=== PATIENT | female | born 1970 | race Caucasian/White ===

== ENCOUNTER 2017-11-20 00:04 | Emergency (ER) | payer MEDICARE ==
--- NOTE | 2017-11-20 00:25 | ERNOTE ---
Abdominal HPI - Narrative Date of Service: 11/20/17 - General Chief Complaint: Abdominal Pain Time Seen by Provider: 11/20/17 00:19 Source: patient Exam Limitations: no limitations - Immun/Allergies/Home Medications Immunizatons: IMMUNIZATION HX Immunizations Up to Date Yes History of Influenza Vaccine Yes Hx Pneumococcal Vaccination Yes Allergies/Adverse Reactions: Allergies acetaminophen [From Vicodin] Allergy (Intermediate, Verified 11/20/17 00:13) THROAT SWELLS hydrocodone bitartrate [From Vicodin] Allergy (Intermediate, Verified 11/20/17 00:13) THROAT SWELLS simvastatin Allergy (Verified 11/20/17 00:13) pravastatin Adverse Reaction (Mild, Verified 11/20/17 00:13) HEADACHE, NAUSEA Home Medications: HOME MEDICATIONS ALPRAZolam [Xanax] 1 mg PO TID PRN 11/21/14 [Last Taken 11/21/14] Albuterol Sulfate [Proair Hfa] 2 puff IH Q4H PRN 11/21/14 [Last Taken Unknown] Atenolol [Tenormin] 50 mg PO DAILY 11/21/14 [Last Taken 11/21/14] Diltiazem HCl [Cardizem Cd] 360 mg PO DAILY 11/21/14 [Last Taken 11/22/14] Gabapentin [Neurontin] 600 mg PO TID 11/21/14 [Last Taken 11/21/14] HYDROmorphone HCL [Dilaudid] 2 mg PO QID PRN 11/21/14 [Last Taken Unknown] Ipratropium [place] [Ipratropium Carolina (Atrovent)] 0.25 mg IH Q6H 11/21/14 [ Last Taken Unknown] Montelukast Sodium [Singulair] 10 mg PO DAILY 11/21/14 [Last Taken 11/21/14] Multivitamins [Multivitamin Maura] 1 cap PO DAILY 11/21/14 [Last Taken 11/21/14 ] Potassium Chloride [Klor-Con 10] 10 meq PO DAILY 11/21/14 [Last Taken 11/21/14] Topiramate [Topamax] 25 mg PO DAILY 11/21/14 [Last Taken 11/21/14] Doxycycline Hyclate [Vibratab] 100 mg PO BID #20 tab 09/17/15 [Last Taken Unknown] Amox Tr/Potassium Clavulanate [Augmentin 875-125 Tablet] 875 mg PO Q12H #20 tab 12/05/15 [Last Taken Unknown] ALPRAZolam [Xanax] 1 mg PO TID PRN 11/20/17 [Last Taken Unknown] Albuterol Sulfate [Proair Hfa] 1 puff IH QID 11/20/17 [Last Taken Unknown] Atenolol [Tenormin] 50 mg PO DAILY 11/20/17 [Last Taken Unknown] Dicyclomine HCl [Bentyl] 20 mg PO QID 11/20/17 [Last Taken Unknown] Levothyroxine Sodium [Levoxyl] 112 mcg PO DAILY 11/20/17 [Last Taken Unknown] Methenamine Hippurate 1 gm PO BID 11/20/17 [Last Taken Unknown] Omeprazole 20 mg PO DAILY 11/20/17 [Last Taken Unknown] Prazosin HCl 2 mg PO DAILY 11/20/17 [Last Taken Unknown] SUMAtriptan SUCCINATE [Imitrex] 100 mg PO PRN 11/20/17 [Last Taken Unknown] Venlafaxine HCl [Effexor Xr] 150 mg PO DAILY 11/20/17 [Last Taken Unknown] lamoTRIgine [Lamictal Odt] 50 mg PO HS 11/20/17 [Last Taken Unknown] rOPINIRole HCL [Requip] 0.5 mg PO BID 11/20/17 [Last Taken Unknown] - History of Present Illness Narrative: 47 year old that has been having left flank/abdominal pain that is sharp since Tuesday. Movement seems to increase the pain. The pain has worsened, and has experienced nausea without vomiting. Feels a bulging in the left flank. There has not been any similar patterns of pain. No complaints of fevers, chills or back pain. Chronic hip pain and a history of fibromyalgia. Frequent UTIs. Takes 2 mg of Dilaudid per day as needed for pain. PMH: Anxiety, hypothyroid, seizures PSH: Cholecystectomy, total hip arthroplasty, tubal ligation Timing: constant Quality: severe Modifying Factors - (Improves): Present: other - nothing Modifying Factors - (Worsens): Present: movement Associated Symptoms: Present: nausea. Absent: shortness of breath Prior Abdominal Problems: Absent: similar symptoms Review of Systems - Review of Systems Constitutional: Present: no symptoms reported EYE: Present: no symptoms reported ENT: Present: no symptoms reported Respiratory: Present: no symptoms reported Cardiology: Present: no symptoms reported Gastrointestinal/Abdominal: Present: no symptoms reported Genitourinary: Present: no symptoms reported Musculoskeletal: Present: no symptoms reported Neurological: Present: no symptoms reported Endocrine: Present: no symptoms reported Hematologic/Lymphatic: Present: no symptoms reported - Patient's Past Medical History Patient History - Medical: Anxiety, Depression, Fibromyalgia, Hypothyroidism, Seizures Patient History - Cardiac/Respiratory: Hypertension Patient History - Cancer: No Hx of Cancer Patient History - Surgical Procedures: Cholecystectomy, Total Hip Replacement, Tubal Ligation Patient History - Other: None - Family History Father Family History - Medical: - Social History Living Situations: home Psych History: Hx of Anxiety, Hx of Depression Smoking Status: Former smoker Alcohol Use: none Drug Use: none - Immunizations Immunizations Up to Date: Yes Hx Pneumococcal Vaccination: Yes History of Influenza Vaccine: Yes Physical Exam - Physical Exam General Appearance: Present: mild distress Head Exam: Present: normal inspection Eye Exam: Normal inspection: bilateral, PERRL: bilateral, EOMI: bilateral Ears, Nose, Throat: Present: normal ENT inspection Neck: Present: normal inspection Respiratory: Present: no respiratory distress Cardiovascular/Chest: Present: regular rate, rhythm Gastrointestinal/Abdominal: Present: soft, tenderness - Left UQ. Absent: guarding, rebound Back Exam: Present: CVA tenderness (L) Extremity Exam: Present: normal inspection Neurological Exam: Present: alert, oriented, dining room host/hostess II-XII nml as tested Skin Exam: Present: normal color ED Progress - Results and Orders Patient's Lab Results:: I have reviewed the patient's lab results. - Vital Signs Patient's Vital Signs:: I have reviewed the patient's vital signs. Vital Signs: Vital Signs 11/20/17 00:08 Temperature 36.1 C L Pulse Rate 83 Respiratory 20 Rate Blood Pressure 161/107 O2 Sat by Pulse 95 Oximetry - EKG EKG: NSR EKG read: Interp. by me EKG Comments: rate 75, normal axis, - CT/Ultrasound CT/Ultrasound Narrative: CT demonstrated mild sigmoid diverticulosis without evidence of acute diverticulitis. There was no free air, ascites or GI tract obstruction. The abdominal aorta was normal in caliber. No evidence of hydronephrosis. Stool burden looked normal. - Progress/Reassessment Chief Complaint: Abdominal Pain Progress:: Improved Progress Note-Subjective: 11/20/17 02:59 Paul 1 mg of Dilaudid IV, a milligrams of Zofran by mouth, 30 mg of ketorolac IV. 11/20/17 02:59 The pain that the back patient may be experiencing could be emanating from her lower back, since the CT scan did not reveal evidence of intra-abdominal pathology. Laboratory values were also unremarkable. Departure Clinical Impression: Abdominal pain - Departure Disposition: Home self-care Condition: Fair Instructions: Abdominal Pain, Adult, [id number] Language: Moldovan Additional Instructions: If the pain should worsen return to the ED. See your doctor next week. Referrals: Dorian Vasquez DO [Primary Care Provider] -
[2017-11-20] MEDS ORDERED: KETOROLAC TROMETHAMINE 30 MG/ML VIAL IV ONE (00:27)
[2017-11-20] MEDS ORDERED: ONDANSETRON HCL/PF 2 MG/ML VIAL IV ONE (00:27)
[2017-11-20] MEDS ORDERED: HYDROmorphone HCL 1 MG/ML DISP.SYRIN IV ONE (00:27)
[2017-11-20] MEDS ORDERED: KETOROLAC TROMETHAMINE 30 MG/ML VIAL ONE (00:31)
[2017-11-20] MEDS ORDERED: HYDROmorphone HCL 2 MG/ML VIAL ONE (00:31)
[2017-11-20] MEDS ORDERED: ONDANSETRON HCL/PF 2 MG/ML VIAL ONE (00:31)
[2017-11-20 00:43] LABS: Hematocrit 45.3 % (37.0-47.0); Hemoglobin 15.5 gm/dL (12.5-16.0); Mean Cell Volume 93.2 fl (78-100); Mean Corpuscular Hemoglobin 31.9 pg (27-31); Mean Corpuscular Hgb Conc 34.2 g/dl (32-36); Mean Platelet Volume 9.2 fl (6.0-9.5); Neutrophil % 54.5 % (42-75.0); Platelet Count 403 K/mm3 (150-450); Red Blood Count 4.86 M/mm3 (4.2-5.4); Red Cell Distribution Width 12.3 % (11.5-14.0); White Blood Count 10.9 K/mm3 (4.0-10.5)
[2017-11-20 00:59] LABS: Urine Bilirubin Negative (NEGATIVE); Urine Ketone Negative (NEGATIVE); Urine Nitrite Negative (NEGATIVE); Urine Protein Negative (NEGATIVE); Urine Urobilinogen Normal (NORMAL)
[2017-11-20 01:02] LABS: ALT 32 U/L (19-67); AST 26 U/L (0-48); Albumin * 4.1 gm/dl (3.4-5.0); Alkaline Phosphatase * 81 U/L (50-170); Anion Gap 11.1 mmol/L (6.8-13.8); BUN/Creatinine Ratio 7.3 (9.0-21.6); Bilirubin, Total 0.2 mg/dL (0.0-1.1); Blood Urea Nitrogen 10 mg/dL (3-23); Ca. Corrected For Albumin 8.9 mg/dL (8.4-10.2); Calcium * 9.3 mg/dL (7.9-10.9); Carbon Dioxide 28.9 mmol/L (24-32.6); Chloride 102 mmol/L (97-106); Glucose * 140 mg/dL (70-110); Lipase 144 U/L (73-393); Sodium 138 mmol/L (132-142); Total Protein 7.9 gm/dL (6.2-8.2); Troponin I Less than 0.017 ng/ml (0.00-0.10)
[2017-11-20 01:08] LABS: Urine Amorphous Sediment Many - 3+ (NONE-FEW); Urine Appearance Cloudy; Urine Bacteria TRACE; Urine Blood 5 /ul (NEGATIVE); Urine Color Yellow; Urine RBC None Seen /hpf (0-5); Urine WBC None Seen /hpf (0-5)
[2017-11-20 02:56] VITALS: BP 156/78
== END 2017-11-20 03:05 | disposition home or self-care (01) ==
LOC: ER 00:04
DX: R10.9 Unspecified abdominal pain (principal); F41.9 Anxiety disorder, unspecified; E03.9 Hypothyroidism, unspecified; F32.9 Major depressive disorder, single episode, unspecified; I10 Essential (primary) hypertension; Z87.891 Personal history of nicotine dependence
CPT/HCPCS: 36415; 71045; 74177; 80053; 81001; 83690; 84484; 84703; 85025; 85379; 93005; 96374; 96375; 99284; J2405